=== PATIENT | female | born 2000 | race Two or more races ===

== ENCOUNTER 2022-11-23 22:57 | Emergency (ER) | payer BC ==
[~2022-11-23] VITALS: Ht 167.6 cm; Wt 47.5 kg
[2022-11-23] MEDS ORDERED: MONTELUKAST SODI4 M1 PO (23:16)
[2022-11-24] MEDS ORDERED: PROVENTIL HFA6.7 GM IH (00:28)
[2022-11-24] MEDS ORDERED: ORASEP SPRAY30 ML MM (00:28)
== END 2022-11-24 | disposition home or self-care (01) ==
LOC: ER 22:57
DX: J02.8 Acute pharyngitis due to other specified organisms (principal); Z91.013 Allergy to seafood; Z87.09 Personal history of other diseases of the respiratory system